=== PATIENT | female | born 2000 | race Caucasian/White ===

== ENCOUNTER 2023-03-31 18:35 | Emergency (ER) | payer OTHER ==
[~2023-03-31] VITALS: Ht 167.6 cm; Wt 88.0 kg
[2023-03-31 18:35] VITALS: TEMP 98.7
[2023-03-31] MEDS ORDERED: WELLTAB40 PO (18:47)
[2023-03-31] MEDS ORDERED: SERT25TA85 PO (18:47)
[2023-03-31] MEDS ORDERED: NALT50TA4 PO (18:47)
[2023-03-31] MEDS ORDERED: LIDOCAINE 2% MDV 20ML VIAL SC ONE (19:35)
[2023-03-31] MEDS ORDERED: CEPHALEXIN 500 MG CAP PO ONE (19:35)
[2023-03-31] MEDS ORDERED: UNRESOLVED CLARIFICATION ENTRY XX STA (19:39)
[2023-03-31] MEDS ORDERED: CEPH500C PO (20:15)
[2023-03-31 20:27] VITALS: BP 124/73; O2SAT 99
== END 2023-03-31 20:29 | disposition home or self-care (01) ==
LOC: M ED 18:35
DX: S66.221A Laceration of extensor muscle, fascia and tendon of right thumb at wrist and hand level, initial encounter (principal); X58.XXXA Exposure to other specified factors, initial encounter; Y92.009 Unspecified place in unspecified non-institutional (private) residence as the place of occurrence of the external cause; Y93.G3 Activity, cooking and baking; Y99.9 Unspecified external cause status

== ENCOUNTER 2023-04-10 11:15 | Day surgery (SDC) | payer OTHER ==
[~2023-04-10] VITALS: Ht 167.6 cm; Wt 85.0 kg
[~2023-04-10 11:15] MED LIST: CEPH500C PO; LR 1,000 ML IV SCH; METOCLOPRAMIDE INJ 10MG/2ML VIAL IV PRN; NALT50TA4 PO; ONDANSETRON 4MG 2ML VIAL IV PRN; SERT25TA85 PO; WELLTAB40 PO; fentaNYL 100 MCG/2 ML INJECTION IV PRN; oxyCODONE 5MG TAB PO PRN
[2023-04-10] MEDS ORDERED: LR 1,000 ML IV SCH (11:50)
[2023-04-10] MEDS ORDERED: propofoL 200 MG/20 ML VIAL As Ordered ONE (12:52)
[2023-04-10] MEDS ORDERED: LIDOCAINE 2% 100MG/5ML SDV (FOR ANES.) As Ordered ONE (12:52)
[2023-04-10] MEDS ORDERED: MIDAZOLAM INJ 2MG/2ML VIAL As Ordered ONE (12:53)
[2023-04-10] MEDS ORDERED: ONDANSETRON 4MG 2ML VIAL As Ordered ONE (12:53)
[2023-04-10] MEDS ORDERED: fentaNYL 100 MCG/2 ML INJECTION As Ordered ONE (12:53)
[2023-04-10] MEDS ORDERED: KETOROLAC 60MG 2ML VIAL As Ordered ONE ×2 (13:46→15:10)
[2023-04-10] MEDS ORDERED: GLYCOPYRROLATE INJ 0.2 MG/ML 2 ML VIAL As Ordered ONE (13:46)
[2023-04-10] MEDS ORDERED: ACETAMINOPHEN 1000MG 100ML IV BAG As Ordered ONE ×2 (13:46→15:10)
[2023-04-10] MEDS ORDERED: ceFAZolin 2 GM/D5W 50 ML IV BAG As Ordered ONE (14:39)
[2023-04-10] MEDS ORDERED: BACITRACIN OINTMENT 30GM TUBE As Ordered ONE (15:26)
[2023-04-10] MEDS ORDERED: oxyCODONE 5MG TAB PO PRN (15:35)
[2023-04-10] MEDS ORDERED: fentaNYL 100 MCG/2 ML INJECTION IV PRN (15:35)
[2023-04-10] MEDS ORDERED: ONDANSETRON 4MG 2ML VIAL IV PRN (15:35)
[2023-04-10] MEDS: HYDROMORPHONE HCL 0.5 MG/ 0.5 ML SYRINGE IV PRN ×2 (16:08→16:14)
[2023-04-10 16:47] VITALS: BP 117/69; TEMP 97.3; O2SAT 100
== END 2023-04-10 16:56 | disposition home or self-care (01) ==
LOC: M SDC 11:15
PROVIDERS: ATTEND Orthopaedic Surgery Hand Surgery
DX: S61.011A Laceration without foreign body of right thumb without damage to nail, initial encounter (principal); S66.221A Laceration of extensor muscle, fascia and tendon of right thumb at wrist and hand level, initial encounter; X58.XXXA Exposure to other specified factors, initial encounter; Y92.89 Other specified places as the place of occurrence of the external cause; Y93.89 Activity, other specified; Y99.9 Unspecified external cause status; B00.9 Herpesviral infection, unspecified; F41.9 Anxiety disorder, unspecified; F32.A Depression, unspecified; F17.290 Nicotine dependence, other tobacco product, uncomplicated; Z79.899 Other long term (current) drug therapy
CPT/HCPCS: 26418; 81025; J0131; J0665; J0690; J1170; J1885; J2250; J2405; J3010